=== PATIENT | male | born 1985 | race Caucasian/White ===

== ENCOUNTER 2018-01-04 10:42 | Emergency (ER) | payer BC ==
[2018-01-04 11:00] VITALS: BP 162/105
[2018-01-04] MEDS ORDERED: Albuterol/Ipratropium 3.0-0.5 MG/3 ML Neb Soln NEB ONE (11:10)
--- NOTE | 2018-01-04 11:13 | EDM.PDOC ---
ED HPI GENERAL MEDICAL PROBLEM - General Chief Complaint: General Stated Complaint: DIZZINESS Time Seen by Provider: 01/04/18 11:11 Source of Information: Reports: Patient History Limitations: Reports: No Limitations - History of Present Illness INITIAL COMMENTS - FREE TEXT/NARRATIVE: HISTORY AND PHYSICAL: []32-year-old presenting with just not feeling well for the last 3 days History of Present Illness: []Patient called his clinic in his provider cannot see him for at least 2 days. He does have history of underlying asthma He has been coughing a little more. Review of Systems: As per history of present illness and below otherwise all systems reviewed and negative. Past medical history: As per history of present illness and as reviewed below otherwise noncontributory. Surgical history: As per history of present illness and as reviewed below otherwise noncontributory. Social history: No reported history of drug or alcohol abuse. Family history: As per history of present illness and as reviewed below otherwise noncontributory. Physical exam: Alert and oriented male answering questions appropriately. Skin is without any shortness of breath. HEENT: Atraumatic, normocehpalic, pupils reactive, negative for conjunctival pallor or scleral icterus, mucous membranes moist, throat clear, neck supple, nontender, trachea midline. Lungs: Coarse to auscultation, bibasilar with wheezing breath sounds equal bilaterally, chest non tender. Heart: S1S2, regular, negative for clicks, rubs, or JVD. Abdomen: Soft, nondistended, nontender. Negative for masses or hepatossplenmegaly. Negative for costovertebral tenderness. Pelvis: Stable nontender. Genitourinary: Deferred. Rectal: Deferred Extremities: Atraumatic, negative for cords or calf pain. Neurovascular unremarkable. Neuro: Awake, alert, oriented. Cranial nerves II through XII unremarkable. Cerebellum unremarkable. Motor and sensory unremarkable throughout. Exam nonfocal. Diagnostics: []cbc cmp cxr Therapeutics: []duoneb Impression: []Upper respiratory infection Plan: []Discharged home Note that he was seen in the emergency department today/return to work tomorrow Start on Medrol Dosepak for his wheezing Return to the emergency room as instructed and discussed Follow-up with his primary care provider Definitive disposition and diagnosis as appropriate pending reevaluation and review of above. Onset: Gradual Duration: Day(s): (3) Location: Reports: Chest Quality: Reports: Ache Severity: Moderate Improves with: Reports: None Worsens with: Reports: None - Related Data Allergies Allergy/AdvReac Type Severity Reaction Status Date / Time No Known Allergies Allergy Verified 01/04/18 11:00 Home Meds: Home Meds Albuterol [Ventolin HFA] 2 puff INH Q4H PRN 09/26/13 [History] Budesonide/Formoterol Fumarate [Symbicort 160-4.5 Mcg Inhaler] 1 puff INH BID [History] methylPREDNISolone [Medrol] 4 mg PO ASDIRECTED #1 dosepk 01/04/18 [Rx] Past Medical History Respiratory History: Reports: Asthma Other Respiratory History: WITNESSES AT SCENE THINKS PATIENT HAS ASTHMA - Infectious Disease History Infectious Disease History: Reports: Chicken Pox - Past Surgical History GI Surgical History: Reports: Hernia, Inguinal Social & Family History - Family History Family Medical History: Noncontributory - Tobacco Use Smoking Status *Q: Current Every Day Smoker Years of Tobacco use: 10 Packs/Tins Daily: 0.7 - Caffeine Use Caffeine Use: Reports: Coffee - Recreational Drug Use Recreational Drug Use: No ED ROS GENERAL - Review of Systems Review Of Systems: ROS reveals no pertinent complaints other than HPI. ED EXAM, GENERAL - Physical Exam Exam: See Below (See dictation) Course - Vital Signs Last Recorded V/S: Last Vital Signs Temp 36.7 C 01/04/18 10:56 Pulse 93 01/04/18 10:56 Resp 16 01/04/18 10:56 BP 162/105 H 01/04/18 10:56 Pulse Ox 96 01/04/18 11:20 - Orders/Labs/Meds Orders: Active Orders 24 hr Category Date Time Status RT Aerosol Therapy [RC] ASDIRECTED Care 01/04/18 11:11 Active Chest 2V [CR] Stat Exams 01/04/18 11:10 Taken Labs: Laboratory Tests 01/04/18 01/04/18 Range/Units 11:25 11:25 WBC 6.48 (4.0-11.0) K/uL RBC 5.06 (4.50-5.90) M/uL Hgb 16.0 (13.0-17.0) g/dL Hct 46.1 (38.0-50.0) % MCV 91.1 (80.0-98.0) fL MCH 31.6 (27.0-32.0) pg MCHC 34.7 (31.0-37.0) g/dL RDW Std Deviation 41.6 (28.0-62.0) fl RDW Coeff of Jennifer 13 (11.0-15.0) % Plt Count 181 (150-400) K/uL MPV 8.80 (7.40-12.00) fL Neut % (Auto) 53.7 (48.0-80.0) % Lymph % (Auto) 31.0 (16.0-40.0) % Armstrong % (Auto) 7.1 (0.0-15.0) % Eos % (Auto) 7.6 H (0.0-7.0) % Baso % (Auto) 0.6 (0.0-1.5) % Neut # (Auto) 3.5 (1.4-5.7) K/uL Lymph # (Auto) 2.0 (0.6-2.4) K/uL Armstrong # (Auto) 0.5 (0.0-0.8) K/uL Eos # (Auto) 0.5 (0.0-0.7) K/uL Baso # (Auto) 0.0 (0.0-0.1) K/uL Nucleated RBC % 0.0 /100WBC Nucleated RBCs # 0 K/uL Sodium 140 (136-148) mmol/L Potassium 4.1 (3.5-5.1) mmol/L Chloride 105 (98-107) mmol/L Carbon Dioxide 26.4 (21.0-32.0) mmol/L BUN 11 (7.0-18.0) mg/dL Creatinine 0.7 L (0.8-1.3) mg/dL Est Cr Clr Drug Dosing 168.30 mL/min Estimated GFR (MDRD) > 60.0 ml/min Glucose 98 (74-106) mg/dL Calcium 8.9 (8.5-10.1) mg/dL Total Bilirubin 1.3 H (0.2-1.0) mg/dL AST 32 (15-37) IU/L ALT 59 (14-63) IU/L Alkaline Phosphatase 65 (46-116) U/L Total Protein 7.6 (6.4-8.2) g/dL Albumin 4.0 (3.4-5.0) g/dL Globulin 3.6 H (2.0-3.5) g/dL Albumin/Globulin Ratio 1.1 L (1.3-2.8) Meds: Medications Discontinued Medications Generic Name Dose Route Start Last Admin Trade Name Edmar PRN Reason Stop Dose Admin Albuterol/Ipratropium 3 ml 01/04/18 11:10 01/04/18 11:20 Duoneb 3.0-0.5 Mg/3 Ml NEB 01/04/18 11:11 3 ml ONETIME ONE Administration Departure - Departure Time of Disposition: 12:20 Disposition: Home, Self-Care 01 Condition: Good Clinical Impression: Upper respiratory infection Qualifiers: URI type: unspecified viral URI Qualified Code(s): J06.9 - Acute upper respiratory infection, unspecified - Discharge Information *PRESCRIPTION DRUG MONITORING PROGRAM REVIEWED*: Not Applicable *COPY OF PRESCRIPTION DRUG MONITORING REPORT IN PATIENT ANTHONY: Not Applicable Prescriptions: methylPREDNISolone [Medrol] 4 mg PO ASDIRECTED #1 dosepk Referrals: PCP,None [Primary Care Provider] - Forms: ED Department Discharge Additional Instructions: The following information is given to patients seen in the emergency department who are being discharged to home. This information is to outline your options for follow-up care. We provide all patients seen in our emergency department with a follow-up referral. The need for follow-up, as well as the timing and circumstances, are variable depending upon the specifics of your emergency department visit. If you don't have a primary care physician on staff, we will provide you with a referral. We always advise you to contact your personal physician following an emergency department visit to inform them of the circumstance of the visit and for follow-up with them and/or the need for any referrals to a consulting specialist. The emergency department will also refer you to a specialist when appropriate. This referral assures that you have the opportunity for followup care with a specialist. All of these measure are taken in an effort to provide you with optimal care, which includes your followup. Under all circumstances we always encourage you to contact your private physician who remains a resource for coordinating your care. When calling for followup care, please make the office aware that this follow-up is from your recent emergency room visit. If for any reason you are refused follow-up, please contact the [facility] emergency department at and asked to speak to the emergency department charge nurse. Discharged home Note that he was seen in the emergency department today/return to work tomorrow Start on Medrol Dosepak for his wheezing Return to the emergency room as instructed and discussed Follow-up with his primary care provider - My Orders Last 24 Hours: My Active Orders 01/04/18 11:10 Chest 2V [CR] Stat 01/04/18 11:11 RT Aerosol Therapy [RC] ASDIRECTED - Assessment/Plan Last 24 Hours: My Active Orders 01/04/18 11:10 Chest 2V [CR] Stat 01/04/18 11:11 RT Aerosol Therapy [RC] ASDIRECTED
[2018-01-04 11:54] LABS: CHLORIDE,CL 105 mmol/L (98-107); SODIUM,NA 140 mmol/L (136-148)
--- NOTE | 2018-01-04 12:30 | CR ---
EXAMINATION: Two-view chest (PA and Lateral views). HISTORY: Shortness of breath. FINDINGS: The trachea is midline. The cardiomediastinal silhouette is within normal limits. No pulmonary infilt rates, effusions or pneumothorax. Osseous structures appear unremarkable. IMPRESSION: No acute cardiopulmonary process.
== END 2018-01-04 12:30 | disposition home or self-care (01) ==
LOC: MW.ED 10:42
DX: J06.9 Acute upper respiratory infection, unspecified (principal); F17.210 Nicotine dependence, cigarettes, uncomplicated
CPT/HCPCS: 36415; 71046; 71046-26; 80053; 85025; 94640; 99284-25; J7620-GY

== ENCOUNTER 2019-10-08 21:57 | Emergency (ER) | payer BC, OTHER ==
--- NOTE | 2019-10-08 22:05 | EDM.PDOC ---
ED HPI GENERAL MEDICAL PROBLEM - General Chief Complaint: Asthma Stated Complaint: ASTHMA ATTACK Time Seen by Provider: 10/08/19 22:00 - History of Present Illness INITIAL COMMENTS - FREE TEXT/NARRATIVE: History of present illness: [] Having a normal day after dinner and feeling well but the patient then developed trouble breathing. His inhaler which he uses without an extension chamber did not help. He called 911 and they gave him 2 breathing treatments and Solu-Medrol. He is oxygen saturation was in the low 80s. He is feeling somewhat better now but still wheezy. Does not have any fever. Review of systems: As per history of present illness and below otherwise all systems reviewed and negative. Past medical history: As per history of present illness and as reviewed below otherwise noncontributory. Years ago and the patient had a roommate he had an asthma attack and he put off coming to the hospital. He ended up passing out and being admitted to the hospital. Now he lives alone he is a little concerned because he had a sudden onset of an asthma attack and it did not get better with his inhaler. Surgical history: As per history of present illness and as reviewed below otherwise noncontributory. Social history: No reported history of drug or alcohol abuse. Family history: As per history of present illness and as reviewed below otherwise noncontributory. Physical exam: Constitutional - well developed, well-nourished and in no acute distress HEENT - normocephalic, no evidence of trauma - external nose and mouth normal - no mass in neck and no JVD - mucosae moist EYES - full EOM, PERRL, no icterus - no evidence of inflammation, injection, or drainage Respiratory - no respiratory distress, equal bilateral expansion, lungs clear to auscultation and no abnormal lung sounds Cardiovascular - Regular Rhythm with S1 and S2 appreciated and no murmur, gallop or rub. Peripheral pulses symmetrically normal in all four extremities GI - abdomen soft without distension or organomegaly - normal bowel sounds - no guard or rebound Musculoskeletal no gross deformity of long bones or joints - no tenderness, swelling or edema Neurologic - Alert and oriented times four - CN II-XII grossly intact - motor sensory and coordination symmetrically normal Psychiatric - appropriate mood and affect with normal thought content Hematologic - No petechiae or purpura - mucosa appropriate color and sclera not pale - normal nail bed color and refill Integument - no rash or evidence of trauma - normal turgor Diagnostics: [] Therapeutics: [] Impression: [] Plan: [] Definitive disposition and diagnosis as appropriate pending reevaluation and review of above. Upper Chest Pain Score (Numeric/FACES): 1 - Related Data Allergies Allergy/AdvReac Type Severity Reaction Status Date / Time No Known Allergies Allergy Verified 01/04/18 11:00 Home Meds: Home Meds Albuterol [Ventolin HFA] 2 puff INH Q4H PRN 09/26/13 [History] Budesonide/Formoterol Fumarate [Symbicort 160-4.5 Mcg Inhaler] 1 puff INH BID 01/04/18 [History] predniSONE 40 mg PO WITHBREAKFAST #9 tab 10/08/19 [Rx] Past Medical History Respiratory History: Reports: Asthma Other Respiratory History: WITNESSES AT SCENE THINKS PATIENT HAS ASTHMA - Infectious Disease History Infectious Disease History: Reports: Chicken Pox - Past Surgical History GI Surgical History: Reports: Hernia, Inguinal Social & Family History - Family History Family Medical History: Noncontributory - Caffeine Use Caffeine Use: Reports: Coffee ED ROS GENERAL - Review of Systems Review Of Systems: Comprehensive ROS is negative, except as noted in HPI. ED EXAM, GENERAL - Physical Exam Exam: See Below Free Text/Narrative:: history and physical in the HPI Course - Vital Signs Text/Narrative:: And 30 p.m. the patient feels 100% better. Oxygen saturation 93% on room air. Patient's not using accessory muscles or retracting or wheezing. Chest x-ray is within normal limits. Last Recorded V/S: Last Vital Signs Temp 97.5 F 10/08/19 22:01 Pulse 125 H 10/08/19 22:01 Resp 26 H 10/08/19 22:01 BP 190/140 H 10/08/19 22:01 Pulse Ox 95 10/08/19 22:01 - Orders/Labs/Meds Orders: Active Orders 24 hr Category Date Time Status CXR [Chest 2V] [CR] Stat Exams 10/08/19 22:03 Ordered Departure - Departure Time of Disposition: 22:36 Disposition: Home, Self-Care 01 Condition: Good Clinical Impression: Acute asthma exacerbation - Discharge Information Instructions: How to Use a Metered Dose Inhaler, Asthma Attack Prevention, Adult Forms: ED Department Discharge Additional Instructions: The following information is given to patients seen in the emergency department who are being discharged to home. This information is to outline your options for follow-up care. We provide all patients seen in our emergency department with a follow-up referral. The need for follow-up, as well as the timing and circumstances, are variable depending upon the specifics of your emergency department visit. If you don't have a primary care physician on staff, we will provide you with a referral. We always advise you to contact your personal physician following an emergency department visit to inform them of the circumstance of the visit and for follow-up with them and/or the need for any referrals to a consulting specialist. The emergency department will also refer you to a specialist when appropriate. This referral assures that you have the opportunity for follow-up care with a specialist. All of these measure are taken in an effort to provide you with optimal care, which includes your follow-up. Under all circumstances we always encourage you to contact your private physician who remains a resource for coordinating your care. When calling for follow-up care, please make the office aware that this follow-up is from your recent emergency room visit. If for any reason you are refused follow-up, please contact the [facility] Emergency Department at and asked to speak to the emergency department charge nurse. [facility] - Primary Care [address] [place] [address] [place] [address] Sepsis Event Note (ED) - Focused Exam Vital Signs: Vital Signs Temp Pulse Resp BP Pulse Ox 10/08/19 22:01 97.5 F 125 H 26 H 190/140 H 95 - My Orders Last 24 Hours: My Active Orders 10/08/19 22:03 CXR [Chest 2V] [CR] Stat - Assessment/Plan Last 24 Hours: My Active Orders 10/08/19 22:03 CXR [Chest 2V] [CR] Stat
[2019-10-08 22:40] VITALS: BP 165/124; PULSE 117
--- NOTE | 2019-10-08 22:43 | CR ---
Indication: Dyspnea, history of asthma Technique: Chest 1 view Comparison: January 04, 2018 Findings: Cardiovascular and mediastinum: Heart size and vasculature are normal in caliber and appearance. Mediastinum is within normal limits. Lungs and pleural space: The lungs are mildly hyperexpanded. Lungs are clear. No sign of infiltrate or mass. No sign of pleural effusion. No pneumothorax. Bones and soft tissues: No significant findings. Impression: : Hyperexpanded lungs. No focal consolidation, effusion, or pneumothorax. Dictated by Maribel Gee MD @ Oct 08 2019 10:43PM Signed by Dr. Maribel Gee @ Oct 08 2019 10:43PM
== END 2019-10-08 23:00 | disposition home or self-care (01) ==
LOC: MW.ED 21:57
DX: J45.901 Unspecified asthma with (acute) exacerbation (principal); Z79.899 Other long term (current) drug therapy
CPT/HCPCS: 71046; 71046-26; 99282; 99284-25

== ENCOUNTER 2021-03-04 20:16 | Emergency (ER) | payer OTHER ==
--- NOTE | 2021-03-04 20:21 | EDM.PDOC ---
ED HPI GENERAL MEDICAL PROBLEM - General Chief Complaint: Respiratory Problem Stated Complaint: ASTHMA ATTACK Time Seen by Provider: 03/04/21 20:17 Source of Information: Reports: Patient History Limitations: Reports: No Limitations - History of Present Illness INITIAL COMMENTS - FREE TEXT/NARRATIVE: HISTORY AND PHYSICAL: History of present illness: Patient is a 35-year-old male who presents to the emergency room with complaints of chest tightness and shortness of breath. Patient states he has history of persistent asthma. He was diagnosed with COVID-19 3 months ago and since has been struggling with his respiratory symptoms. He did do a 2-week course of steroids after resolution of COVID and felt improved. Over the last few days he has had increased shortness of breath and is concerned he is going to have an asthma attack. States his chest feels tight as if "it is going to come on". He has had a nonproductive and frequent cough and wheezing. Patient denies any fever, chills, headache, change in vision, syncope or near syncope. Denies any chest pain, back pain, abdominal pain, nausea, vomiting, diarrhea, constipation or dysuria. Has not noted any blood in urine or stool. Patient has been eating and drinking appropriately. No recent travel or sick contacts. Review of systems: As per history of present illness and below otherwise all systems reviewed and negative. Past medical history: As per history of present illness and as reviewed below otherwise noncontributory. Surgical history: As per history of present illness and as reviewed below otherwise noncontributory. Social history: See social history for further information Family history: As per history of present illness and as reviewed below otherwise noncontributory. Physical exam: General: Well developed and well nourished. Alert and orientated x 3. Nontoxic in appearance and in no acute distress. Vital signs are stable and have been reviewed by me. Nursing notes were reviewed. HEENT: Atraumatic, normocephalic, pupils equal and reactive bilaterally, negative for conjunctival pallor or scleral icterus, mucous membranes moist, TMs normal bilaterally, throat clear, neck supple, nontender, trachea midline. No drooling or trismus noted. No meningeal signs. No hot potato voice noted. Lungs: Poor air exchange to auscultation bilaterally. No wheezes, rales, or rhonchi. Chest nontender. Normal work of breathing, no accessory muscles used. Heart: S1S2, regular rate and rhythm without overt murmur, gallops, or rubs. No JVD. No peripheral edema Abdomen: Soft, nondistended, nontender. Normoactive bowel sounds. Negative for masses or costovertebral tenderness. Pelvis: Stable nontender. Genitourinary/Rectal: Deferred. Skin: Intact, warm, dry. No lesions or rashes noted. Hematologic: No petechiae or purpra. Mucosa appropriate color and normal nail bed color and refill. Extremities: Atraumatic, moves all extremities per self without difficulty or deficits, negative for cords or calf pain. Neurovascular unremarkable. Neuro: Awake, alert, oriented. Cranial nerves II through XII unremarkable. Cerebellum unremarkable. Motor and sensory unremarkable throughout. Exam nonfoc al. Psychiatric: Mood and affect are appropriate. Normal thought process. Answering questions appropriately. Please note that the patient was seen and evaluated during the 2019 SARS-CoV-2 novel coronavirus pandemic period. Community viral transmission is ongoing at time of this encounter and the emergency department is operating under pandemic response procedures. Medical Decision Making: Patient is a 35-year-old male who presents to the emergency room with complaints of chest tightness, cough and dyspnea over the past few days. Patient states he has persistent asthma but does do a daily inhaler along with rescue inhaler. States he has been using his rescue inhaler without much relief. Physical exam shows poor air exchange throughout although no wheezing is heard at this time. No use of accessory muscles noted. Patient states he does have a nebulizer machine at home although has not used it. Will obtain an x-ray and give him IM Solu-Medrol along with a DuoNeb here to help with symptomatic relief. Patient symptoms have improved and CXR shows no acute findings. I have talked with the patient about today's findings, in addition to providing specific details for plan of care. Reassessment at the time of disposition demonstrates that the patient is in no acute distress. The patient is stable for discharge, counseling was provided and we discussed in great detail signs and symptoms that would prompt them to return to the Emergency Department. Medication, follow up and supportive care measures were reviewed and discussed. Voices understanding and is agreeable to plan of care. Denies any further questions or concerns at this time. Diagnostics: Chest x-ray Therapeutics: DuoNeb, Solu-Medrol Prescription: DuoNeb, prednisone Impression: Asthma exacerbation Plan: 1. You were evaluated today on an emergent basis. Your chest x-ray is unremarkable. Please use the inhalers you have at home as directed. Use the DuoNeb every 4-6 hours as needed for symptomatic relief. You may need to do the duo nebs more frequently while you are feeling short of breath with chest tightness. You were given Solu-Medrol IM which is a steroid. A prescription for an oral steroid has been prescribed and sent to [facility]. You can start that on Monday. 2. You can alternate Tylenol and ibuprofen as needed for pain and fever management. 3. We encourage you to follow up with your primary care provider in the next few days for re-evaluation and further care/management. 4. If your symptoms should worsen, new symptoms develop or any of the signs and symptoms we discussed should arise please return to the emergency room or call 911 (if needed). Definitive disposition and diagnosis as appropriate pending reevaluation and review of above. - Related Data Allergies Allergy/AdvReac Type Severity Reaction Status Date / Time No Known Allergies Allergy Verified 03/04/21 20:26 Home Meds: Home Meds Albuterol [Ventolin HFA] 2 puff INH Q4H PRN 09/26/13 [History] Albuterol/Ipratropium [DuoNeb 3.0-0.5 MG/3 ML] 1 ampule INH Q4HR PRN #1 box 03/04/21 [Rx] Fluticasone/Vilanterol [Breo Ellipta 200-25 MCG Inhalation Kit] 03/04/21 [History] Lisinopril/Hydrochlorothiazide [Lisinopril-HCTZ 10-12.5 MG] 1 tab PO DAILY 03/04/21 [History] Montelukast [Singulair] 10 mg PO DAILY 03/04/21 [History] predniSONE [Prednisone] 40 mg PO DAILY 5 Days #10 tablet 03/04/21 [Rx] Past Medical History Respiratory History: Reports: Asthma Other Respiratory History: WITNESSES AT SCENE THINKS PATIENT HAS ASTHMA - Infectious Disease History Infectious Disease History: Reports: Chicken Pox - Past Surgical History GI Surgical History: Reports: Hernia, Inguinal Social & Family History - Family History Family Medical History: No Pertinent Family History - Caffeine Use Caffeine Use: Reports: Coffee ED ROS GENERAL - Review of Systems Review Of Systems: Comprehensive ROS is negative, except as noted in HPI. ED EXAM, GENERAL - Physical Exam Exam: See Below (See dictation) Course - Vital Signs Last Recorded V/S: Last Vital Signs Temp 97.5 F 03/04/21 20:23 Pulse 112 H 03/04/21 20:23 Resp 18 03/04/21 20:23 BP 137/98 H 03/04/21 20:23 Pulse Ox 100 03/04/21 20:23 - Orders/Labs/Meds Orders: Active Orders 24 hr Category Date Time Status RT Aerosol Therapy [RC] ASDIRECTED Care 03/04/21 20:28 Active Chest 1V Frontal [CR] Stat Exams 03/04/21 20:25 Taken Meds: Medications Discontinued Medications Generic Name Dose Route Start Last Admin Trade Name Freq PRN Reason Stop Dose Admin Albuterol/Ipratropium 3 ml 03/04/21 20:28 03/04/21 20:47 Albuterol/Ipratropium 3.0-0.5 Mg/3 Ml Neb Soln NEB 03/04/21 20:29 3 ml ONETIME ONE Administration Methylprednisolone Sodium Succinate 125 mg 03/04/21 20:25 03/04/21 20:48 Methylprednisolone Sodium Succinate 125 Mg/2 Ml Sdv IM 03/04/21 20:26 125 mg ONETIME ONE Administration Departure - Departure Time of Disposition: 20:56 Disposition: Home, Self-Care 01 Clinical Impression: Asthma exacerbation Qualifiers: Asthma severity: mild Asthma persistence: persistent Qualified Code(s): J45.31 - Mild persistent asthma with (acute) exacerbation - Discharge Information Prescriptions: Albuterol/Ipratropium [DuoNeb 3.0-0.5 MG/3 ML] 1 ampule INH Q4HR PRN #1 box PRN Reason: Dyspnea predniSONE [Prednisone] 40 mg PO DAILY 5 Days #10 tablet Instructions: Asthma, Adult, [id number] Referrals: Birgit Persaud DO [Primary Care Provider] - Forms: ED Department Discharge Additional Instructions: The following information is given to patients seen in the emergency department who are being discharged to home. This information is to outline your options for follow-up care. We provide all patients seen in our emergency department with a follow-up referral. The need for follow-up, as well as the timing and circumstances, are variable depending upon the specifics of your emergency department visit. If you don't have a primary care physician on staff, we will provide you with a referral. We always advise you to contact your personal physician following an emergency department visit to inform them of the circumstance of the visit and for follow-up with them and/or the need for any referrals to a consulting specialist. The emergency department will also refer you to a specialist when appropriate. This referral assures that you have the opportunity for follow-up care with a specialist. All of these measure are taken in an effort to provide you with optimal care, which includes your follow-up. Under all circumstances we always encourage you to contact your private physician who remains a resource for coordinating your care. When calling for follow-up care, please make the office aware that this follow-up is from your recent emergency room visit. If for any reason you are refused follow-up, please contact the [facility] Emergency Department at and asked to speak to the emergency department charge nurse. [facility] [address] [place] [id number] [address] [address] Thank you for choosing the [facility] emergency department in [place] for your medical needs today. It was a pleasure caring for you. Today you were seen in the emergency department for asthma exacerbation Your prescription was electronically sent to: [facility] 1. You were evaluated today on an emergent basis. Your chest x-ray is unremarkable. Please use the inhalers you have at home as directed. Use the DuoNeb every 4-6 hours as needed for symptomatic relief. You may need to do the duo nebs more frequently while you are feeling short of breath with chest tightness. You were given Solu-Medrol IM which is a steroid. A prescription for an oral steroid has been prescribed and sent to [facility]. You can start that on Monday. 2. You can alternate Tylenol and ibuprofen as needed for pain and fever management. 3. We encourage you to follow up with your primary care provider in the next few days for re-evaluation and further care/management. 4. If your symptoms should worsen, new symptoms develop or any of the signs and symptoms we discussed should arise please return to the emergency room or call 911 (if needed). Sepsis Event Note (ED) - Focused Exam Vital Signs: Vital Signs Temp Pulse Resp BP Pulse Ox 03/04/21 20:23 97.5 F 112 H 18 137/98 H 100 - My Orders Last 24 Hours: My Active Orders 03/04/21 20:25 Chest 1V Frontal [CR] Stat 03/04/21 20:28 RT Aerosol Therapy [RC] ASDIRECTED - Assessment/Plan Last 24 Hours: My Active Orders 03/04/21 20:25 Chest 1V Frontal [CR] Stat 03/04/21 20:28 RT Aerosol Therapy [RC] ASDIRECTED
[2021-03-04] MEDS ORDERED: methylPREDNISolone Sodium Succinate 125 MG/2 ML SDV IM ONE (20:25)
[2021-03-04] MEDS ORDERED: Albuterol/Ipratropium 3.0-0.5 MG/3 ML Neb Soln NEB ONE (20:28)
--- NOTE | 2021-03-04 21:16 | CR ---
Indication: Shortness of breath Technique: Chest 1 view Comparison: October 08, 2019 Findings/Impression: Normal cardiomediastinal silhouette. There are faint increased interstitial markings in the mid and upper lung carter concerning for infection. No pneumothorax or effusion. Osseous structures intact. Dictated by Maribel Gee MD @ 03/04/2021 9:15:18 PM (Electronically Signed)
[2021-03-04 22:32] VITALS: BP 134/98; PULSE 104
== END 2021-03-04 21:40 | disposition home or self-care (01) ==
LOC: MW.ED 20:16
DX: J45.31 Mild persistent asthma with (acute) exacerbation (principal); Z79.899 Other long term (current) drug therapy
CPT/HCPCS: 71045; 96372; 99285; J2930; J7620-GY

== ENCOUNTER 2021-05-18 18:59 | Emergency (ER) | payer OTHER ==
[2021-05-18] MEDS ORDERED: Sodium Chloride 0.9% 2.5 ML Syringe FLUSH PRN (19:17)
[2021-05-18] MEDS ORDERED: Sodium Chloride 0.9% 10 ML Syringe FLUSH PRN (19:17)
[2021-05-18] MEDS ORDERED: Albuterol/Ipratropium 3.0-0.5 MG/3 ML Neb Soln NEB ONE ×2 (19:18→19:57)
[2021-05-18] MEDS ORDERED: Lactated Ringers 1,000 ML IV ONE (19:20)
[2021-05-18 20:07] LABS: BLOOD UREA NITROGEN,BUN 6 mg/dL (7.0-18.0); CARBON DIOXIDE,CO2 19.6 mmol/L (21.0-32.0); CHLORIDE,CL 103 mmol/L (98-107); GLUCOSE RANDOM 94 mg/dL (74-106); POTASSIUM,K 3.6 mmol/L (3.5-5.1); SODIUM,NA 136 mmol/L (136-148)
[2021-05-18 20:48] VITALS: BP 130/82; PULSE 96
== END 2021-05-18 20:45 | disposition home or self-care (01) ==
LOC: MW.ED 18:59
DX: J98.01 Acute bronchospasm (principal); R00.2 Palpitations; I10 Essential (primary) hypertension; Z79.899 Other long term (current) drug therapy
CPT/HCPCS: 36415; 71045; 80053; 84484; 85025; 85379; 93005; 99285; J7120; J7620-GY

== ENCOUNTER 2023-05-04 16:28 | Emergency (ER) | payer OTHER ==
[2023-05-04] MEDS ORDERED: cefTRIAXone 1 GM in Sodium Chloride 0.9% 50 ML IV STA (16:38)
[2023-05-04] MEDS ORDERED: Sodium Chloride 0.9% 1,000 ML IV STA ×2 (16:38→17:28)
[2023-05-04 16:39] VITALS: BP 142/92; PULSE 137
[2023-05-04] MEDS ORDERED: Albuterol/Ipratropium 3.0-0.5 MG/3 ML Neb Soln NEB STA (16:39)
[2023-05-04] MEDS ORDERED: Dexamethasone 10 MG/ML SDV IV STA (16:40)
[2023-05-04 16:54] LABS: BASOPHILS ABSOLUTE AUTO 0.03 K/uL (0.00-0.20); BASOPHILS PERCENT AUTO 0.3 % (0.0-1.0); EOSINOPHILS ABSOLUTE AUTO 0.21 K/uL (0.00-0.45); EOSINOPHILS PERCENT AUTO 2.1 % (0.0-6.0); HEMATOCRIT 44.2 % (42.0-52.0); HEMOGLOBIN 15.9 g/dL (14.0-18.0); IMMATURE GRAN ABSOLUTE AUTO 0.06 K/uL (0.00-0.05); IMMATURE GRAN PERCENT AUTO 0.6 % (0.0-0.4); LYMPHOCYTES ABSOLUTE AUTO 1.11 K/uL (1.00-4.80); LYMPHOCYTES PERCENT AUTO 10.9 % (24.0-44.0); MEAN CORPUSCULAR VOLUME 88.9 fL (83.0-99.0); MEAN PLATELET VOLUME 8.1 fL (9.4-12.4); MONOCYTES ABSOLUTE AUTO 1.08 K/uL (0.00-0.80); MONOCYTES PERCENT AUTO 10.6 % (0.0-8.0); NEUTROPHILS ABSOLUTE AUTO 7.72 K/uL (1.80-7.70); NEUTROPHILS PERCENT AUTO 75.5 % (41.0-71.0); PLATELET COUNT,PLT 189 K/uL (150-400); RED BLOOD CELL COUNT 4.97 M/uL (4.52-5.90); WHITE BLOOD CELL COUNT,WBC 10.21 K/uL (3.9-11.3)
[2023-05-04 17:21] LABS: BILIRUBIN TOTAL 0.4 mg/dL (0.2-1.0); CALCIUM 8.5 mg/dL (8.5-10.1); CARBON DIOXIDE,CO2 19.9 mmol/L (21.0-32.0); EST CRCL DRUG DOSING (CG) 113.17 mL/min; MAGNESIUM 2.1 mg/dL (1.8-2.4); POTASSIUM,K 3.4 mmol/L (3.5-5.1)
[2023-05-04 18:23] LABS: CORONAVIRUS COVID-19 NAA NEGATIVE (NEGATIVE); INFLUENZA A NAA NEGATIVE (NEGATIVE); INFLUENZA B NAA NEGATIVE (NEGATIVE); RESPIRATORY SYNCYTIAL VIR NAA NEGATIVE (NEGATIVE)
== END 2023-05-04 18:16 | disposition left against medical advice (07) ==
LOC: MW.ED 16:28
DX: R06.00 Dyspnea, unspecified (principal); R00.0 Tachycardia, unspecified; R74.02 Elevation of levels of lactic acid dehydrogenase [LDH]; I10 Essential (primary) hypertension; J45.909 Unspecified asthma, uncomplicated; Z79.899 Other long term (current) drug therapy
CPT/HCPCS: 0241U; 36415; 71045; 80053; 83605; 83690; 83735; 84484; 85025; 85379; 87040; 93005; 96365; 96375; 99285; J0696; J1100; J3490; J7030; 93010; 99283; J7620-GY